=== PATIENT | female | born 1995 | race Caucasian/White ===

== ENCOUNTER 2020-06-16 12:07 | Emergency (ER) | payer OTHER ==
[~2020-06-16] VITALS: Ht 160 cm; Wt 47.6 kg
== END 2020-06-16 16:43 | disposition home or self-care (01) ==
LOC: ER 12:07
DX: S33.5XXA Sprain of ligaments of lumbar spine, initial encounter (principal); S50.01XA Contusion of right elbow, initial encounter; M25.521 Pain in right elbow; V49.88XA Car occupant (driver) (passenger) injured in other specified transport accidents, initial encounter; Y93.89 Activity, other specified; Y92.413 State road as the place of occurrence of the external cause; Y99.8 Other external cause status